=== PATIENT | female | born 1975 | race Caucasian/White ===

== ENCOUNTER 2017-07-02 01:41 | Inpatient (IN) | payer OTHER ==
[2017-07-02] MEDS ORDERED: CEFAZOLIN 2 GM/50 ML (PMX) 0 ML IVPB (02:45)
[2017-07-02] MEDS ORDERED: OXYCODONE/ASPIRIN (4.88/325) TAB PO (04:30)
[2017-07-02] MEDS ORDERED: IBUPROFEN 600 MG TAB PO (04:30)
[2017-07-02] MEDS ORDERED: MISOPROSTOL 200 MCG TAB PR (04:30)
[2017-07-02] MEDS ORDERED: OXYTOCIN 30 UNITS/LR 500 ML IV (04:30)
[2017-07-02] MEDS ORDERED: METHYLERGONOVINE 0.2 MG INJ IM (04:30)
[2017-07-02] MEDS ORDERED: CARBOPROST 250 MCG INJ IM (04:30)
[2017-07-02 05:29] LABS: ADD MAN DIFF? NO
[2017-07-02] MEDS: DINOPROSTONE 10 MG VAG SUPP VAG (05:31)
[2017-07-02] MEDS: LACTATED RINGER'S 1,000 ML IV ×4 (05:31→20:01)
[2017-07-02 05:35] LABS: WHITE BLOOD COUNT 7.4 10^3/ul (4.8-10.8)
[2017-07-02 05:35] LABS: BASOPHIL # 0.1 10^3/ul (0.0-0.1); BASOPHILS % 0.7 % (0.0-2.0); EOSINOPHILS # 0.1 10^3/ul (0.0-0.5); HEMATOCRIT 35.6 % (37.0-47.0); HEMOGLOBIN 12.3 g/dl (12.0-16.0); LYMPHOCYTES % 26.7 % (15.0-51.0); MEAN CORPUSCULAR HEMOGLOBIN 31.6 pg (29.0-33.0); MEAN CORPUSCULAR HGB CONC 34.6 g/dl (32.0-37.0); MEAN CORPUSCULAR VOLUME 91.5 fl (82.0-101.0); MEAN PLATELET VOLUME 11.8 fl (7.4-10.4); MONOCYTE # 0.5 10^3/ul (0.3-0.9); MONOCYTES % 7.2 % (0.0-11.0); NEUTROPHIL # 4.7 10^3/ul (1.6-7.5); NEUTROPHILS % 63.2 % (39.0-77.0); PLATELET COUNT 179 10^3/UL (140-415); RED BLOOD COUNT 3.89 10^6/ul (4.20-5.40); RED CELL DISTRIBUTION WIDTH 13.1 % (11.5-14.5)
[2017-07-02 05:58] LABS: GLUCOSE 80 mg/dl (70-220)
[2017-07-02 06:00] LABS: INR 0.82; PROTIME 11.4 Sec (11.9-14.9); PT RATIO 0.9
[2017-07-02 06:01] LABS: PARTIAL THROMBOPLASTIN TIME 27.1 Sec (25.0-35.0)
[2017-07-02] MEDS: ACETAMINOPHEN 325 MG TAB PO (06:05)
[2017-07-02 07:21] LABS: ALANINE AMINOTRANSFERASE 24 IU/L (13-69); ALBUMIN 3.4 g/dl (3.3-4.9); ALBUMIN/GLOBULIN RATIO 1.21; ALKALINE PHOSPHATASE 127 IU/L (42-121); ANION GAP 15 (8-16); ASPARTATE AMINO TRANSFERASE 18 IU/L (15-46); BILIRUBIN,INDIRECT 0.8 mg/dl (0-1.1); BILIRUBIN,TOTAL 0.8 mg/dl (0.2-1.3); BLOOD UREA NITROGEN 13 mg/dl (7-20); CARBON DIOXIDE 19 mmol/L (21-31); CHLORIDE 108 mmol/L (97-110); CREATININE 0.59 mg/dl (0.44-1.00); GLUCOSE 75 mg/dl (70-220); POTASSIUM 4.1 mmol/L (3.5-5.1); SODIUM 138 mmol/L (135-144); TOTAL PROTEIN 6.2 g/dl (6.1-8.1)
[2017-07-02 07:34] LABS: ADD UMIC NO; UR ASCORBIC ACID NEGATIVE (NEGATIVE); UR BILIRUBIN (Dip) NEGATIVE (NEGATIVE); UR BLOOD (Dip) NEGATIVE (NEGATIVE); UR CLARITY CLEAR (CLEAR); UR COLOR YELLOW (YELLOW); UR GLUCOSE (Dip) NEGATIVE (NEGATIVE); UR KETONES (Dip) NEGATIVE (NEGATIVE); UR LEUKOCYTE ESTERASE (Dip) NEGATIVE Leu/ul (NEGATIVE); UR NITRITE (Dip) NEGATIVE (NEGATIVE); UR SPECIFIC GRAVITY (Dip) 1.013 (1.003-1.030); UR TOTAL PROTEIN (Dip) NEGATIVE (NEGATIVE); UR UROBILINOGEN (Dip) NEGATIVE (NEGATIVE)
[2017-07-02] MEDS: DEXTROSE 5%-LR 1,000 ML IV (09:51)
[2017-07-02] MEDS: BUTORPHANOL 2 MG INJ IV (13:41)
[2017-07-02] MEDS: OXYTOCIN 30 UNITS/LR 500 ML IV ×2 (16:03→16:51)
[2017-07-02] MEDS: LIDOCAINE 1% (MPF) 30 ML INJ INJ (16:03)
[2017-07-02 22:24] LABS: RAPID PLASMA REAGIN NONREACTIVE (NR)
[2017-07-02] MEDS: BENZOCAINE 20% 56 ML SPRAY TOP (22:41)
[2017-07-02] MEDS: WITCH HAZEL/GLYCERIN PAD PR (22:41)
[2017-07-02] MEDS: LANOLIN 7 GM TUBE TOP (22:42)
[2017-07-02] MEDS: IBUPROFEN 600 MG TAB PO (22:42)
[2017-07-03] MEDS ORDERED: IBUPROFEN 600 MG TAB PO
[2017-07-03] MEDS: LACTATED RINGER'S 1,000 ML IV ×3 (04:01→20:01)
[2017-07-03] MEDS: IBUPROFEN 600 MG TAB PO ×3 (05:49→17:50)
[2017-07-03 08:43] LABS: ADD MAN DIFF? NO
[2017-07-03 08:50] LABS: BASOPHILS % 0.4 % (0.0-2.0); EOSINOPHILS # 0.1 10^3/ul (0.0-0.5); EOSINOPHILS % 1.1 % (0.0-7.0); HEMATOCRIT 29.8 % (37.0-47.0); MEAN CORPUSCULAR HEMOGLOBIN 31.3 pg (29.0-33.0); MEAN CORPUSCULAR HGB CONC 33.6 g/dl (32.0-37.0); MEAN CORPUSCULAR VOLUME 93.1 fl (82.0-101.0); MEAN PLATELET VOLUME 11.7 fl (7.4-10.4); MONOCYTE # 0.7 10^3/ul (0.3-0.9); MONOCYTES % 7.2 % (0.0-11.0); NEUTROPHIL # 6.8 10^3/ul (1.6-7.5); PLATELET COUNT 149 10^3/UL (140-415); RED CELL DISTRIBUTION WIDTH 13.2 % (11.5-14.5)
[2017-07-03 08:50] LABS: WHITE BLOOD COUNT 9.8 10^3/ul (4.8-10.8)
[2017-07-03] MEDS ORDERED: PROCHLORPERAZINE 10 MG INJ IV (23:00)
[2017-07-03] MEDS ORDERED: ONDANSETRON 4 MG INJ IV (23:00)
[2017-07-03] MEDS ORDERED: MEPERIDINE 25 MG INJ IV (23:00)
[2017-07-03] MEDS ORDERED: HYDROmorphONE (0.2 MG/ML) 10ML SYG IV (23:00)
[2017-07-03] MEDS ORDERED: DIPHENHYDRAMINE 50 MG INJ IV (23:00)
[2017-07-03] MEDS ORDERED: MIDAZOLAM 1 MG/ML 2 ML INJ (23:09)
[2017-07-03] MEDS ORDERED: FENTAnyl 50 MCG/ML VIAL (23:29)
[2017-07-03] MEDS ORDERED: CEFAZOLIN 1 GM INJ (23:34)
[2017-07-03] MEDS: BUPIVACAINE 0.25% (MPF) 30 ML INJ (23:51)
[2017-07-03] MEDS ORDERED: PHENYLephrine (100 MCG/ML) 5ML SYG (23:53)
[2017-07-04] MEDS: IBUPROFEN 600 MG TAB PO
[2017-07-04] MEDS ORDERED: HYDROmorphONE 0.5 MG/0.5 ML SYG IV ×2 (00:30)
[2017-07-04] MEDS: FENTAnyl 50 MCG/ML VIAL IV ×2 (01:25→01:39)
[2017-07-04] MEDS: HYDROmorphONE 0.5 MG/0.5 ML SYG IV (03:13)
[2017-07-04] MEDS: KETOROLAC 30 MG INJ IV (05:12)
[2017-07-04] MEDS ORDERED: OXYCODONE/ACETAMINOPHEN (5/325) TAB PO (08:30)
[2017-07-04] MEDS: OXYCODONE/ACETAMINOPHEN (5/325) TAB PO ×2 (08:30→12:23)
[2017-07-04] MEDS: INFLUENZA VIRUS VACCINE 0.5 ML (DISPENSING) IM* (12:13)
== END 2017-07-04 16:05 | disposition home or self-care (01) | DRG 767 ==
LOC: OBT 01:41 → L-D 01:42 → OBT 04:24 → L-D 04:25 → PP1 19:09
PROVIDERS: Obstetrics & Gynecology Obstetrics
PROC: 0UB70ZZ Excision of Bilateral Fallopian Tubes, Open Approach (ICD-10-PCS; 2017-07-03 00:01)
PROC: 10E0XZZ Delivery of Products of Conception, External Approach (ICD-10-PCS; principal; 2017-07-03 23:09)
PROC: 0W8NXZZ Division of Female Perineum, External Approach (ICD-10-PCS; 2017-07-03 23:09)
DX: O24.429 Gestational diabetes mellitus in childbirth, unspecified control (principal); Z30.2 Encounter for sterilization; Z37.0 Single live birth; Z3A.40 40 weeks gestation of pregnancy
CPT/HCPCS: 76815; 80053; 81003; 82947; 82962; 84560; 85025; 85384; 85610; 85730; 86592; 86900; 86901; 87086; 88302; 88307; 90686